=== PATIENT | female | born 1965 | race African-American/Black ===

== ENCOUNTER 2021-08-10 03:33 | Inpatient (IN) | payer OTHER ==
[~2021-08-10] VITALS: Ht 165.1 cm; Wt 54.4 kg
[2021-08-10] MEDS ORDERED: ALBUTEROL (0.083%) 2.5MG/3ML NEB HHN STA (04:24)
[2021-08-10 04:57] LABS: CHLORIDE 113 mEq/L (98-107)
[2021-08-10 05:00] LABS: BASOPHILS % 1.2 % (0.0-2.0); EOSINOPHILS % 0.6 % (0.0-5.0); HEMOGLOBIN. 13.8 g/dL (12.0-16.0); LYMPHOCYTES % 42.7 % (20.0-50.0); MEAN CORPUSCULAR HEMOGLOBIN 30.7 pg (28.0-32.0); MEAN PLATELET VOLUME 9.3 fl (7.4-10.4); MONOCYTES % 6.4 % (2.0-8.0); NEUTROPHILS % 49.1 % (40.0-76.0); PLATELET 175 x1000/uL (130-400); RED CELL DISTRIBUTION WIDTH 14.4 % (11.6-14.6)
[2021-08-10] MEDS ORDERED: IBUPROFEN 400MG TABLET PO ONE (05:00)
[2021-08-10] MEDS ORDERED: ACETAMINOPHEN 325MG TABLET PO ONE (07:00)
[2021-08-10] MEDS ORDERED: ONDANSETRON HCL 4MG/2ML INJ IV ONE (07:00)
[2021-08-10] MEDS ORDERED: KETOROLAC 30MG/ML VIAL IV SCH (11:45)
[2021-08-10] MEDS: FUROSEMIDE 40MG/4ML VIAL IVP SCH ×2 (18:13→18:15)
[2021-08-10] MEDS ORDERED: ONDANSETRON HCL 4MG/2ML INJ IV PRN (18:15)
[2021-08-10] MEDS ORDERED: CLONIDINE 0.1MG TABLET PO PRN (18:15)
[2021-08-10] MEDS ORDERED: HYDROCODONE/ACETAMINOPHEN 5/325MG TABLET PO PRN (18:15)
[2021-08-10] MEDS ORDERED: LORAZEPAM 2MG/ML CPJ IV PRN (18:15)
[2021-08-10] MEDS ORDERED: DIPHENHYDRAMINE 50MG/ML VIAL IV PRN (18:15)
[2021-08-10] MEDS ORDERED: ACETAMINOPHEN 325MG TABLET PO PRN ×2 (18:15)
[2021-08-10] MEDS ORDERED: THIAMINE HCL 100 MG in SODIUM CHLORIDE 0.9% 49 ML IV ONE (18:45)
[2021-08-10] MEDS ORDERED: NALOXONE HCL 0.4MG/ML VIAL IV PRN (19:00)
[2021-08-10] MEDS: MORPHINE SULFATE 2 MG/ML CPJ (NOT FOR IM USE) IV PRN (19:11)
[2021-08-10] MEDS ORDERED: THIAMINE HCL 100 MG in SODIUM CHLORIDE 0.9% 49 ML IV NR (19:15)
[2021-08-10] MEDS ORDERED: MAGNESIUM/ALUMINUM HYDROXIDE/SIMETHICONE 30ML UDC PO PRN (20:00)
[2021-08-10] MEDS: ENOXAPARIN 40MG/0.4ML SYR SUBCUT SCH (20:59)
[2021-08-10] MEDS ORDERED: ZOLPIDEM TARTRATE 5MG TABLET PO PRN (21:00)
[2021-08-10] MEDS: CARVEDILOL 3.125 MG TABLET PO SCH ×2 (21:20→21:51)
[2021-08-10] MEDS: SUCRALFATE 1 G/10 ML UDC PO SCH (21:50)
[2021-08-10] MEDS: CHLORDIAZEPOXIDE 25MG CAPSULE PO SCH (21:50)
[2021-08-10] MEDS: PANTOPRAZOLE 40MG DR TABLET PO SCH (21:52)
[2021-08-10] MEDS: SODIUM CHLORIDE 0.9% INJ 3ML FLUSH IVF SCH (22:04)
[2021-08-10 23:18] VITALS: BP 93/54
[2021-08-10] MEDS ORDERED: LISI10TA26 PO (23:44)
[2021-08-10] MEDS ORDERED: FURO40TA5 PO (23:44)
[2021-08-10] MEDS ORDERED: [UNRECOGNIZED DRUG - CODE] MM (23:44)
[2021-08-10] MEDS ORDERED: SPIR25TA6 PO (23:44)
[2021-08-10] MEDS ORDERED: CARV3.1242 PO (23:44)
[2021-08-10] MEDS ORDERED: CEFP200T13 PO (23:44)
[2021-08-10] MEDS ORDERED: SACU1TAB7 PO (23:44)
[2021-08-10] MEDS ORDERED: CICL6.1H2 INH (23:44)
[2021-08-10] MEDS ORDERED: POTA20TA82 PO (23:44)
[2021-08-10] MEDS ORDERED: HYDR-4001 PO (23:44)
[2021-08-11] MEDS: MORPHINE SULFATE 2 MG/ML CPJ (NOT FOR IM USE) IV PRN ×2 (03:13→22:08)
[2021-08-11 04:00] VITALS: BP 96/61
[2021-08-11] MEDS: SUCRALFATE 1 G/10 ML UDC PO SCH ×4 (06:07→22:07)
[2021-08-11] MEDS: PANTOPRAZOLE 40MG DR TABLET PO SCH ×2 (06:07→22:07)
[2021-08-11] MEDS: FUROSEMIDE 40MG/4ML VIAL IVP SCH ×3 (06:07→17:57)
[2021-08-11] MEDS: CHLORDIAZEPOXIDE 25MG CAPSULE PO SCH ×3 (06:07→22:07)
[2021-08-11] MEDS: SODIUM CHLORIDE 0.9% INJ 3ML FLUSH IVF SCH ×3 (06:08→22:07)
[2021-08-11 07:23] LABS: BASOPHILS % 0.7 % (0.0-2.0); EOSINOPHILS % 0.8 % (0.0-5.0); HEMATOCRIT. 34.8 % (36.0-48.0); HEMOGLOBIN. 11.9 g/dL (12.0-16.0); LYMPHOCYTES % 42.6 % (20.0-50.0); MEAN CORPUSCULAR VOLUME 90.7 fL (81.0-99.0); MEAN PLATELET VOLUME 9.5 fl (7.4-10.4); MONOCYTES % 6.7 % (2.0-8.0); NEUTROPHILS % 49.2 % (40.0-76.0); PLATELET 155 x1000/uL (130-400); RED BLOOD CELL COUNT 3.84 mill/uL (4.2-5.4); RED CELL DISTRIBUTION WIDTH 14.6 % (11.6-14.6)
[2021-08-11 07:36] LABS: CHLORIDE 111 mEq/L (98-107)
[2021-08-11 07:46] LABS: PHOSPHORUS 4.6 mg/dL (2.5-4.9)
[2021-08-11 08:00] VITALS: BP 97/63
[2021-08-11] MEDS: CARVEDILOL 3.125 MG TABLET PO SCH ×2 (09:00→20:23)
[2021-08-11] MEDS ORDERED: SPIRONOLACTONE 25MG TABLET PO SCH (09:00)
[2021-08-11] MEDS ORDERED: LISINOPRIL 10MG TABLET PO SCH (09:00)
[2021-08-11] MEDS ORDERED: MULTIVITAMINS,THER W-MINERALS TABLET PO SCH (09:00)
[2021-08-11] MEDS ORDERED: NICOTINE 7MG PATCH TD SCH (09:00)
[2021-08-11 12:00] VITALS: BP 91/63
[2021-08-11 16:00] VITALS: BP 92/56
[2021-08-11 21:21] VITALS: BP 90/63
[2021-08-11] MEDS: ENOXAPARIN 40MG/0.4ML SYR SUBCUT SCH (22:07)
[2021-08-11 22:08] VITALS: BP 90/63
== END 2021-08-11 23:13 | disposition short-term general hospital (02) | DRG 291 ==
LOC: ER 03:48 → 7EST 10:46 → ENRESERV 21:42
PROVIDERS: ADMIT Internal Medicine; ATTEND Internal Medicine
DX: I11.0 Hypertensive heart disease with heart failure (principal); I50.23 Acute on chronic systolic (congestive) heart failure; F17.200 Nicotine dependence, unspecified, uncomplicated; F10.10 Alcohol abuse, uncomplicated; Y90.9 Presence of alcohol in blood, level not specified; Z20.822 Contact with and (suspected) exposure to COVID-19
CPT/HCPCS: 36415; 71045; 80048; 80053; 83735; 83880; 84100; 84484; 85025; 87426; 93005; 93306; 94640; 99285; J1650; J1885; J1940; J2270; J2405; J3411

== ENCOUNTER 2021-08-17 15:27 | Emergency (ER) | payer OTHER ==
[~2021-08-17] VITALS: Ht 165.1 cm; Wt 55.0 kg
[~2021-08-17 15:27] MED LIST: CARV3.1242 PO; CEFP200T13 PO; CICL6.1H2 INH; FURO40TA5 PO; HYDR-4001 PO; LISI10TA26 PO; POTA20TA82 PO; SACU1TAB7 PO; SPIR25TA6 PO; [UNRECOGNIZED DRUG - CODE] MM
[2021-08-17 15:29] VITALS: BP 113/76
[2021-08-17] MEDS ORDERED: ONDANSETRON HCL 4MG/2ML INJ IV ONE (15:45)
[2021-08-17] MEDS ORDERED: MORPHINE SULFATE 4 MG/ML CPJ (NOT FOR IM USE) IV ONE (15:45)
[2021-08-17] MEDS ORDERED: NITROGLYCERIN 0.4MG TABLET SL SL ONE (15:45)
== END 2021-08-17 20:17 | disposition left against medical advice (07) ==
LOC: ER 15:27
DX: R07.9 Chest pain, unspecified (principal); R11.2 Nausea with vomiting, unspecified; R53.83 Other fatigue; R00.0 Tachycardia, unspecified; I11.0 Hypertensive heart disease with heart failure; I50.9 Heart failure, unspecified; Z86.73 Personal history of transient ischemic attack (TIA), and cerebral infarction without residual deficits; Z98.890 Other specified postprocedural states; Z79.899 Other long term (current) drug therapy
CPT/HCPCS: 93005; 99283

== ENCOUNTER 2021-10-14 11:58 | Inpatient (IN) | payer OTHER ==
[~2021-10-14] VITALS: Ht 165.1 cm; Wt 54.9 kg
[2021-10-14] MEDS ORDERED: ATROPINE SULFATE 1MG/10ML SYR ONE (12:30)
[2021-10-14] MEDS ORDERED: MAGNESIUM SULFATE 4G IN WATER 100ML PREMIX IV ONE (12:30)
[2021-10-14] MEDS ORDERED: CALCIUM CHLORIDE 1GM/10ML SYR IV ONE (12:30)
[2021-10-14] MEDS ORDERED: FUROSEMIDE 20MG/2ML VIAL IVP ONE (12:30)
[2021-10-14] MEDS ORDERED: EPINEPHRINE 0.1MG/ML (1:10,000) 10ML SYR ONE ×2 (12:30→19:13)
[2021-10-14] MEDS ORDERED: IPRATROPIUM BROMIDE (0.02%) 0.5MG/2.5ML NEB HHN STA (12:30)
[2021-10-14] MEDS ORDERED: AMIODARONE HCL 50MG/ML 3ML VIAL IV ONE (12:30)
[2021-10-14] MEDS ORDERED: ALBUTEROL (0.083%) 2.5MG/3ML NEB HHN STA (12:30)
[2021-10-14] MEDS ORDERED: SODIUM BICARBONATE 8.4% 1 MEQ/ML 50ML SYR IV ONE (12:30)
[2021-10-14] MEDS ORDERED: SODIUM CHLORIDE 0.9% 500 ML IV ONE (13:00)
[2021-10-14 13:03] LABS: BG BASE EXCESS -0.9 mmol/L (-2.0-2.0); BG CARBOXYHEMOGLOBIN 0.2 % (0.5-1.5); BG DEOXYHEMOGLOBIN 3.7 % (0.0-5.0); BG HCO3 ACT 20.9 mmol/L (22.0-26.0); BG METHEMOGLOBIN 0.1 % (0.0-1.5); BG OXYGEN SATURATION 96.3 % (92.0-98.5); BG PCO2 27.5 mmHg (35.0-45.0); BG PH 7.498 (7.350-7.450); BG PO2 81.3 mmHg (75.0-100.0); BG SAMPLE SITE RIGHT RADIAL; BG TOTAL HEMOGLOBIN 14.3 g/dL (12.0-18.0); BG VENT MODE NASAL CANNULA
[2021-10-14 13:25] LABS: BASOPHILS % 0.8 % (0.0-2.0); EOSINOPHILS % 0.3 % (0.0-5.0); HEMATOCRIT. 41.3 % (36.0-48.0); HEMOGLOBIN. 13.5 g/dL (12.0-16.0); LYMPHOCYTES % 39.7 % (20.0-50.0); MEAN CORPUSCULAR HEMOGLOBIN 28.9 pg (28.0-32.0); MEAN CORPUSCULAR VOLUME 88.2 fL (81.0-99.0); MEAN PLATELET VOLUME 9.7 fl (7.4-10.4); MONOCYTES % 6.9 % (2.0-8.0); NEUTROPHILS % 52.3 % (40.0-76.0); PLATELET 209 x1000/uL (130-400); RED BLOOD CELL COUNT 4.68 mill/uL (4.2-5.4); RED CELL DISTRIBUTION WIDTH 14.3 % (11.6-14.6)
[2021-10-14 13:33] LABS: CHLORIDE 107 mEq/L (98-107)
[2021-10-14] MEDS ORDERED: MORPHINE SULFATE 4 MG/ML CPJ (NOT FOR IM USE) IV SCH (14:45)
[2021-10-14] MEDS ORDERED: POTASSIUM CHLORIDE INJ 40 MEQ in DEXT 5% WATER 500 ML IV SCH (15:00)
[2021-10-14] MEDS ORDERED: CEFTRIAXONE 1 G PREMIX 50 ML IV NR (16:00)
[2021-10-14] MEDS ORDERED: AZITHROMYCIN 500 MG in DEXT 5% WATER 250 ML IV SCH (16:00)
[2021-10-14] MEDS ORDERED: AZITHROMYCIN 500MG/250ML 250 ML IV NR (16:15)
[2021-10-14] MEDS ORDERED: POTASSIUM CHLORIDE 20MEQ TABLET SR PO ONE (18:00)
[2021-10-14] MEDS ORDERED: MORPHINE SULFATE 4 MG/ML CPJ (NOT FOR IM USE) IV ONE (18:00)
[2021-10-14] MEDS ORDERED: AMIODARONE HCL 150 MG in DEXT 5% WATER 100 ML IV ONE (18:15)
[2021-10-14] MEDS ORDERED: NOREPINEPHRINE 8MG/250ML PMX 250 ML IV ONE (19:00)
[2021-10-14] MEDS ORDERED: DOPAMINE 400MG/250ML PREMIX 250 ML IV ONE (19:13)
[2021-10-14] MEDS ORDERED: POTASSIUM CHLORIDE INJ 40 MEQ in DEXT 5% WATER 250 ML IV ONE (19:15)
[2021-10-14] MEDS ORDERED: DOPAMINE 400MG/250ML PREMIX 250 ML IV SCH (19:15)
[2021-10-14] MEDS ORDERED: DOBUTAMINE 250MG PREMIX 250 ML IV ONE (19:30)
[2021-10-14] MEDS ORDERED: PHENYLEPHRINE 50 MG in DEXT 5% WATER 245 ML IV ONE (19:30)
[2021-10-14] MEDS ORDERED: MIDAZOLAM HCL 100 MG in DEXT 5% WATER 80 ML IV ONE (19:45)
[2021-10-14] MEDS ORDERED: MIDAZOLAM 100MG/100ML PMX 100 ML IV PRN (20:00)
[2021-10-14 20:28] LABS: BG BASE EXCESS -17.8 mmol/L (-2.0-2.0); BG CARBOXYHEMOGLOBIN 0.3 % (0.5-1.5); BG FRACTION INSPIRED OXYGEN 100; BG HCO3 ACT 14.2 mmol/L (22.0-26.0); BG METHEMOGLOBIN 1.8 % (0.0-1.5); BG OXYGEN SATURATION 23.4 % (92.0-98.5); BG OXYHEMOGLOBIN 22.9 % (94.0-97.0); BG PH 6.978 (7.350-7.450); BG PO2 < 30.3 mmHg (75.0-100.0); BG SAMPLE SITE LEFT FEMORAL; BG TOTAL HEMOGLOBIN 13.5 g/dL (12.0-18.0); BG VENT MODE VENT - AC
[2021-10-14 20:29] LABS: CHLORIDE 106 mEq/L (98-107)
[2021-10-14] MEDS ORDERED: CALCIUM GLUCONATE 100MG/ML 10ML VIAL IV ONE (20:45)
[2021-10-14] MEDS ORDERED: KCL 20MEQ/100ML X 2 FOR TOTAL KCL 40MEQ/200ML IV SCH (21:00)
[2021-10-14] MEDS ORDERED: AMIODARONE HCL 900 MG in DEXT 5% WATER 482 ML IV SCH ×4 (21:30)
[2021-10-14] MEDS ORDERED: KCL 20MEQ/100ML PREMIX 100 ML IV ONE (21:45)
[2021-10-14] MEDS ORDERED: PHENYLEPHRINE 50 MG in DEXT 5% WATER 245 ML IV NR ×4 (22:30)
[2021-10-14] MEDS ORDERED: NOREPINEPHRINE 8MG/250ML PMX 250 ML IV NR (22:45)
[2021-10-14 22:59] LABS: BG BASE EXCESS -20.7 mmol/L (-2.0-2.0); BG CARBOXYHEMOGLOBIN 0.3 % (0.5-1.5); BG DEOXYHEMOGLOBIN 81.7 % (0.0-5.0); BG FRACTION INSPIRED OXYGEN 100; BG HCO3 ACT 12.1 mmol/L (22.0-26.0); BG METHEMOGLOBIN 1.8 % (0.0-1.5); BG OXYGEN SATURATION 16.5 % (92.0-98.5); BG OXYHEMOGLOBIN 16.2 % (94.0-97.0); BG PCO2 59.3 mmHg (35.0-45.0); BG PH 6.928 (7.350-7.450); BG PO2 < 30.3 mmHg (75.0-100.0); BG SAMPLE SITE LEFT FEMORAL; BG TOTAL HEMOGLOBIN 13.7 g/dL (12.0-18.0); BG VENT MODE VENT - AC
[2021-10-14] MEDS ORDERED: ACETAMINOPHEN 325MG TABLET PO PRN (23:45)
[2021-10-14] MEDS ORDERED: DOBUTAMINE IV NR (23:45)
[2021-10-14] MEDS ORDERED: WATER IV NR (23:45)
[2021-10-14] MEDS ORDERED: ONDANSETRON HCL 4MG/2ML INJ IV PRN (23:45)
[2021-10-14] MEDS ORDERED: DEXT 5% IV NR (23:45)
[2021-10-15] VITALS (61 sets, daily range): BP systolic 28–190; BP diastolic 16–116
[2021-10-15] MEDS ORDERED: NOREPINEPHRINE 32 MG in DEXTROSE 5% WATER 250 ML IV PRN (00:45)
[2021-10-15] MEDS ORDERED: EPINEPHRINE 10 MG in SODIUM CHLORIDE 0.9% 240 ML IV STA (00:58)
[2021-10-15] MEDS ORDERED: SODIUM BICARBONATE 150 MEQ in DEXTROSE 5% WATER 1,000 ML IV STA (00:58)
[2021-10-15] MEDS ORDERED: MAGNESIUM 4 G PREMIX 100 ML IV ONE (01:00)
[2021-10-15 03:47] LABS: BG BASE EXCESS -10.5 mmol/L (-2.0-2.0); BG CARBOXYHEMOGLOBIN 0.3 % (0.5-1.5); BG DEOXYHEMOGLOBIN 0.4 % (0.0-5.0); BG FRACTION INSPIRED OXYGEN 100; BG HCO3 ACT 13.3 mmol/L (22.0-26.0); BG METHEMOGLOBIN 0.2 % (0.0-1.5); BG OXYGEN SATURATION 99.6 % (92.0-98.5); BG OXYHEMOGLOBIN 99.1 % (94.0-97.0); BG PCO2 24.8 mmHg (35.0-45.0); BG PH 7.348 (7.350-7.450); BG PO2 437.6 mmHg (75.0-100.0); BG SAMPLE SITE LEFT FEMORAL; BG TOTAL HEMOGLOBIN 13.2 g/dL (12.0-18.0); BG VENT MODE VENT - AC
[2021-10-15] MEDS: VASOPRESSIN 20 UNITS in SODIUM CHLORIDE 0.9% 100 ML IV PRN ×2 (04:05→10:09)
[2021-10-15] MEDS ORDERED: DOBUTAMINE 250MG PREMIX 250 ML IV PRN ×2 (04:15→11:00)
[2021-10-15] MEDS ORDERED: DEXT 5% IV PRN (04:15)
[2021-10-15] MEDS ORDERED: WATER IV PRN (04:15)
[2021-10-15] MEDS ORDERED: DOBUTAMINE IV PRN (04:15)
[2021-10-15] MEDS: PHENYLEPHRINE 100 MG in DEXT 5% WATER 240 ML IV PRN ×3 (04:32→15:18)
[2021-10-15] MEDS: DEXT 5%/0.45% NACL 1000ML 1,000 ML IV SCH ×2 (04:41→13:19)
[2021-10-15 06:27] LABS: CHLORIDE 103 mEq/L (98-107)
[2021-10-15] MEDS ORDERED: ATROPINE SULFATE 1MG/10ML SYR ONE (08:16)
[2021-10-15] MEDS ORDERED: EPINEPHRINE 0.1MG/ML (1:10,000) 10ML SYR ONE ×2 (08:16→12:32)
[2021-10-15] MEDS ORDERED: SODIUM BICARBONATE 8.4% 1 MEQ/ML 50ML SYR IV ONE ×2 (08:16→12:32)
[2021-10-15] MEDS ORDERED: DEXTROSE 50% WATER 50ML SYRINGE IV ONE (08:16)
[2021-10-15] MEDS ORDERED: CALCIUM CHLORIDE 1GM/10ML SYR IV ONE (08:16)
[2021-10-15] MEDS ORDERED: ENOXAPARIN 40MG/0.4ML SYR SUBCUT SCH (09:00)
[2021-10-15] MEDS ORDERED: PANTOPRAZOLE SODIUM 40 MG/VIAL IV SCH (09:00)
[2021-10-15] MEDS ORDERED: POTASSIUM CHLORIDE INJ 40 MEQ in DEXT 5% WATER 250 ML IV ONE (09:30)
[2021-10-15 10:08] LABS: BASOPHILS % 0.2 % (0.0-2.0); EOSINOPHILS % 0.1 % (0.0-5.0); HEMATOCRIT. 42.7 % (36.0-48.0); HEMOGLOBIN. 13.7 g/dL (12.0-16.0); MEAN CORPUSCULAR HEMOGLOBIN 28.8 pg (28.0-32.0); MEAN CORPUSCULAR VOLUME 90.1 fL (81.0-99.0); MONOCYTES % 5.3 % (2.0-8.0); NEUTROPHILS % 82.4 % (40.0-76.0); RED BLOOD CELL COUNT 4.74 mill/uL (4.2-5.4); RED CELL DISTRIBUTION WIDTH 14.7 % (11.6-14.6)
[2021-10-15] MEDS ORDERED: AMIODARONE HCL 150 MG in DEXT 5% WATER 97 ML IV SCH (10:30)
[2021-10-15] MEDS ORDERED: MIDAZOLAM HCL 100 MG in SODIUM CHLORIDE 0.9% 80 ML IV PRN (10:45)
[2021-10-15 10:57] LABS: BG BASE EXCESS -8.6 mmol/L (-2.0-2.0); BG CARBOXYHEMOGLOBIN 0.3 % (0.5-1.5); BG DEOXYHEMOGLOBIN 0.9 % (0.0-5.0); BG FRACTION INSPIRED OXYGEN 100; BG HCO3 ACT 12.5 mmol/L (22.0-26.0); BG METHEMOGLOBIN 0.7 % (0.0-1.5); BG OXYGEN SATURATION 99.1 % (92.0-98.5); BG OXYHEMOGLOBIN 98.1 % (94.0-97.0); BG PCO2 17.8 mmHg (35.0-45.0); BG PH 7.463 (7.350-7.450); BG PO2 291.4 mmHg (75.0-100.0); BG SAMPLE SITE RIGHT RADIAL; BG TOTAL HEMOGLOBIN 13.7 g/dL (12.0-18.0); BG VENT MODE VENT - AC
[2021-10-15] MEDS ORDERED: IPRATROPIUM BROMIDE (0.02%) 0.5MG/2.5ML NEB HHN PRN (11:30)
[2021-10-15] MEDS ORDERED: AMIODARONE HCL 900 MG in DEXT 5% WATER 482 ML IV SCH (11:30)
[2021-10-15] MEDS ORDERED: SODIUM BICARBONATE 150 MEQ in DEXTROSE 5% WATER 1000 ML IV SCH (11:30)
[2021-10-15] MEDS ORDERED: EPINEPHRINE 10 MG in SODIUM CHLORIDE 0.9% 240 ML IV PRN (11:30)
[2021-10-15 11:48] LABS: PLATELET 52 x1000/uL (130-400)
[2021-10-15] MEDS ORDERED: IPRATROPIUM BROMIDE (0.02%) 0.5MG/2.5ML NEB HHN SCH (12:00)
[2021-10-15] MEDS: KCL 20MEQ/100ML X 2 FOR TOTAL KCL 40MEQ/200ML IV SCH ×2 (12:11→16:18)
[2021-10-15] MEDS ORDERED: AMIODARONE HCL 50MG/ML 3ML VIAL IV ONE (12:32)
[2021-10-15] MEDS ORDERED: MAGNESIUM SULFATE 4G IN WATER 100ML PREMIX IV ONE (12:32)
[2021-10-15] MEDS ORDERED: LIDOCAINE HCL 2% 5ML SYRINGE IV ONE (12:32)
[2021-10-15] MEDS ORDERED: DOPAMINE 400MG/250ML PREMIX 250 ML IV PRN (13:15)
[2021-10-15 14:43] LABS: BG CARBOXYHEMOGLOBIN 0.3 % (0.5-1.5); BG DEOXYHEMOGLOBIN 0.9 % (0.0-5.0); BG FRACTION INSPIRED OXYGEN 100; BG HCO3 ACT 9.2 mmol/L (22.0-26.0); BG METHEMOGLOBIN 0.4 % (0.0-1.5); BG OXYGEN SATURATION 99.1 % (92.0-98.5); BG OXYHEMOGLOBIN 98.4 % (94.0-97.0); BG PCO2 21.4 mmHg (35.0-45.0); BG PH 7.253 (7.350-7.450); BG SAMPLE SITE ALINE; BG TOTAL HEMOGLOBIN 12.4 g/dL (12.0-18.0); BG TOTAL RESPIRATORY RATE 24 b/min; BG VENT MODE VENT - AC
[2021-10-15] MEDS ORDERED: ATROPINE SULFATE 1MG/10ML SYR IV NR ×2 (16:00)
[2021-10-15] MEDS ORDERED: MORPHINE SULFATE 250 MG in DEXT 5% WATER 225 ML IV PRN (18:15)
== END 2021-10-15 19:02 | DRG 208 ==
LOC: ER 11:58 → CVICU 20:44 → ENRESERV 23:24
PROVIDERS: ADMIT Hospitalist; ATTEND Hospitalist
PROC: 5A12012 Performance of Cardiac Output, Single, Manual (ICD-10-PCS; principal; 2021-10-14)
PROC: 5A1945Z Respiratory Ventilation, 24-96 Consecutive Hours (ICD-10-PCS; 2021-10-14)
PROC: 5A2204Z Restoration of Cardiac Rhythm, Single (ICD-10-PCS; 2021-10-14)
PROC: 0BH17EZ Insertion of Endotracheal Airway into Trachea, Via Natural or Artificial Opening (ICD-10-PCS; 2021-10-14)
PROC: 06HY33Z Insertion of Infusion Device into Lower Vein, Percutaneous Approach (ICD-10-PCS; 2021-10-14)
PROC: B54BZZA Ultrasonography of Right Lower Extremity Veins, Guidance (ICD-10-PCS; 2021-10-14)
PROC: 5A12012 Performance of Cardiac Output, Single, Manual (ICD-10-PCS; 2021-10-15)
DX: J96.01 Acute respiratory failure with hypoxia (principal); I21.A1 Myocardial infarction type 2; I50.23 Acute on chronic systolic (congestive) heart failure; E87.2 Acidosis; N17.9 Acute kidney failure, unspecified; I47.2 Ventricular tachycardia; I42.8 Other cardiomyopathies; I11.0 Hypertensive heart disease with heart failure; F17.210 Nicotine dependence, cigarettes, uncomplicated; R57.0 Cardiogenic shock; R73.9 Hyperglycemia, unspecified; Z20.822 Contact with and (suspected) exposure to COVID-19; K76.89 Other specified diseases of liver; R74.01 Elevation of levels of liver transaminase levels; I46.9 Cardiac arrest, cause unspecified; I49.01 Ventricular fibrillation; I44.7 Left bundle-branch block, unspecified; E87.6 Hypokalemia; Z86.73 Personal history of transient ischemic attack (TIA), and cerebral infarction without residual deficits; Z79.899 Other long term (current) drug therapy
CPT/HCPCS: 36415; 36600; 71045; 80048; 80053; 82375; 82805; 82962; 83036; 83735; 83880; 84484; 85025; 85379; 87070; 87426; 93005; 93306; 93970; 94002; 94640; 99291; C9113; J0282; J0456; J0461; J0610; J0696; J1250; J1265; J1650; J2250; J2270; J2370; J3475; J3480; J3490; J7040; J7050; J7060; J7070; A4315